=== PATIENT | female | born 1975 | race Caucasian/White ===

== ENCOUNTER 2017-02-01 21:09 | Emergency (ER) | payer OTHER ==
[~2017-02-01] VITALS: Ht 162.6 cm; Wt 72.6 kg
[2017-02-01 23:08] LABS: BASOPHIL % 0.1 % (0-2); PLATELET COUNT 314 x10^3mcL (130-400); RED CELL DISTRIBUTION WIDTH 13.2 % (11.5-14.5)
[2017-02-01 23:13] LABS: CALCIUM 8.4 mg/dL (8.5-10.1); CARBON DIOXIDE 23.8 mmol/L (21-32); CHLORIDE SERUM 107 mmol/L (98-107); CREATININE SERUM 0.8 mg/dL (0.6-1.0); GFR1 > 60 mL/min; GLUCOSE SERUM 95 mg/dL (74-106); SODIUM SERUM 142 mmol/L (136-145)
[2017-02-01 23:17] LABS: ALBUMIN 3.4 g/dL (3.4-5.0); ALKALINE PHOSPHATASE 87 U/L (46-116); ALT/SGPT 48 U/L (14-59); AMYLASE 49 U/L (25-115); AST/SGOT 30 U/L (15-37); BILIRUBIN TOTAL 0.6 mg/dL (0.20-1.00); LIPASE 276 IU/L (73-393); TOTAL PROTEIN, SERUM 6.6 g/dL (6.4-8.2)
[2017-02-02 03:44] VITALS: BP 105/65
== END 2017-02-02 03:44 | disposition home or self-care (01) ==
LOC: ED 21:09
PROVIDERS: Emergency Medicine
DX: R10.31 Right lower quadrant pain (principal); R11.10 Vomiting, unspecified; J45.909 Unspecified asthma, uncomplicated; F99 Mental disorder, not otherwise specified
CPT/HCPCS: J2405; J7030

== ENCOUNTER 2017-02-02 04:17 | Emergency (ER) | payer OTHER ==
[2017-02-02 05:06] VITALS: BP 125/64
== END 2017-02-02 05:07 | disposition home or self-care (01) ==
LOC: ED 04:17
DX: R19.7 Diarrhea, unspecified (principal); J45.909 Unspecified asthma, uncomplicated

== ENCOUNTER 2018-03-15 14:02 | Emergency (ER) | payer OTHER, MEDICAID ==
[~2018-03-15] VITALS: Ht 165.1 cm; Wt 65.8 kg
[2018-03-15 14:17] VITALS: Ht 165.1 cm; Wt 65.8 kg
[2018-03-15 14:50] LABS: BASOPHIL % 0.4 % (0-2); PLATELET COUNT 297 x10^3mcL (130-400); RED CELL DISTRIBUTION WIDTH 13.3 % (11.5-14.5)
[2018-03-15 14:58] LABS: CALCIUM 8.4 mg/dL (8.5-10.1); CARBON DIOXIDE 26.9 mmol/L (21-32); CHLORIDE SERUM 106 mmol/L (98-107); CREATININE SERUM 0.6 mg/dL (0.6-1.0); GFR1 > 60 mL/min; GLUCOSE SERUM 83 mg/dL (74-106); POTASSIUM SERUM 3.2 mmol/L (3.5-5.1); SODIUM SERUM 142 mmol/L (136-145)
[2018-03-15 15:53] LABS: AMPHETAMINE QUAL UR POSITIVE (See below)
[2018-03-15 18:50] VITALS: BP 121/59
== END 2018-03-15 18:50 ==
LOC: ED 14:02
PROVIDERS: Emergency Medicine
DX: F29 Unspecified psychosis not due to a substance or known physiological condition (principal); E87.6 Hypokalemia; J45.909 Unspecified asthma, uncomplicated; Z98.51 Tubal ligation status
CPT/HCPCS: 36415; G0480; J3490

== ENCOUNTER 2019-02-01 16:03 | Emergency (ER) | payer OTHER ==
[~2019-02-01] VITALS: Ht 162.6 cm; Wt 87.5 kg
[2019-02-01 16:07] VITALS: Ht 162.6 cm; Wt 87.5 kg
[2019-02-01 17:07] LABS: BASOPHIL % 0.2 % (0-2); PLATELET COUNT 345 x10^3mcL (130-400); RED CELL DISTRIBUTION WIDTH 12.3 % (11.5-14.5)
[2019-02-01 17:17] LABS: CALCIUM 9.3 mg/dL (8.5-10.1); CARBON DIOXIDE 22.9 mmol/L (21-32); CHLORIDE SERUM 105 mmol/L (98-107); CREATININE SERUM 1.2 mg/dL (0.6-1.0); GFR1 53 mL/min; GLUCOSE SERUM 153 mg/dL (74-106); POTASSIUM SERUM 3.2 mmol/L (3.5-5.1); SODIUM SERUM 141 mmol/L (136-145)
[2019-02-01 17:19] LABS: microscopic required? YES; urine erythrocyte 3+ (NEGATIVE)
[2019-02-01 17:21] LABS: ALBUMIN 3.9 g/dL (3.4-5.0); ALKALINE PHOSPHATASE 72 U/L (46-116); ALT/SGPT 21 U/L (14-59); AST/SGOT 16 U/L (15-37); BILIRUBIN TOTAL 0.8 mg/dL (0.20-1.00); TOTAL PROTEIN, SERUM 6.9 g/dL (6.4-8.2)
[2019-02-01 17:27] LABS: AMPHETAMINE QUAL UR POSITIVE (See below)
[2019-02-01 19:56] VITALS: BP 111/67
== END 2019-02-01 19:56 | disposition left against medical advice (07) ==
LOC: ED 16:03
PROVIDERS: Emergency Medicine
DX: O26.891 Other specified pregnancy related conditions, first trimester (principal); F15.10 Other stimulant abuse, uncomplicated; J45.909 Unspecified asthma, uncomplicated; Z3A.01 Less than 8 weeks gestation of pregnancy; Z88.0 Allergy status to penicillin; Z98.890 Other specified postprocedural states
CPT/HCPCS: 36415; G0480

== ENCOUNTER 2020-09-05 20:32 | Emergency (ER) | payer OTHER ==
[~2020-09-05] VITALS: Ht 162.6 cm; Wt 98.0 kg
[2020-09-05 20:39] VITALS: BP 128/70; Ht 162.6 cm; Wt 98.0 kg
== END 2020-09-05 22:33 | disposition home or self-care (01) ==
LOC: ED 20:32
DX: N83.202 Unspecified ovarian cyst, left side (principal); J45.909 Unspecified asthma, uncomplicated; Z88.0 Allergy status to penicillin

== ENCOUNTER 2020-09-06 17:56 | Emergency (ER) | payer OTHER ==
[~2020-09-06] VITALS: Ht 165.1 cm; Wt 96.2 kg
[2020-09-06 18:03] VITALS: Ht 165.1 cm; Wt 96.2 kg
[2020-09-06 19:05] VITALS: BP 124/73
== END 2020-09-06 19:05 | disposition home or self-care (01) ==
LOC: ED 17:56
DX: R10.32 Left lower quadrant pain (principal); Z88.0 Allergy status to penicillin; Z02.79 Encounter for issue of other medical certificate